=== PATIENT | male | born 1975 | race Caucasian/White ===

== ENCOUNTER 2025-01-30 09:49 | Emergency (ER) | payer BC, OTHER ==
[2025-01-30 09:55] VITALS: BP 134/91; PULSE 62; RESP 18; TEMP 97.9; BMI 30.8
[2025-01-30] MEDS ORDERED: CycloBENZAprine HCL 10 MG TABLET (FP) ONE (10:31)
[2025-01-30] MEDS ORDERED: KETOROLAC TROMETHAMINE 30 MG/1 ML VIAL ONE (10:32)
[2025-01-30] MEDS ORDERED: ACETAMINOPHEN 500 MG TABLET (FP) ONE (10:32)
[2025-01-30] MEDS ORDERED: LIDOCAINE 5% TOPICAL PATCH ONE (10:35)
[2025-01-30] MEDS: CycloBENZAprine HCL 10 MG TABLET (FP) PO ONE (10:42)
[2025-01-30] MEDS: KETOROLAC TROMETHAMINE 30 MG/1 ML VIAL IM ONE (10:42)
[2025-01-30] MEDS: LIDOCAINE 5% TOPICAL PATCH TP ONE (10:43)
[2025-01-30] MEDS: ACETAMINOPHEN 500 MG TABLET (FP) PO ONE (10:43)
[2025-01-30] MEDS ORDERED: LIDOCAINE PATCH REMOVAL MC ONE (22:00)
== END 2025-01-30 12:43 | disposition home or self-care (01) ==
LOC: JERFT 09:49
PROC: 3E0233Z Introduction of Anti-inflammatory into Muscle, Percutaneous Approach (ICD-10-PCS; principal; 2025-01-30)
DX: S39.012A Strain of muscle, fascia and tendon of lower back, initial encounter (principal); M41.86 Other forms of scoliosis, lumbar region; X50.0XXA Overexertion from strenuous movement or load, initial encounter
CPT/HCPCS: 72100-TC-FY; 99284-25